=== PATIENT | female | born 1995 | race African-American/Black ===

== ENCOUNTER 2020-08-31 19:02 | Emergency (ER) | payer MEDICAID ==
[~2020-08-31] VITALS: Ht 170.2 cm; Wt 60.0 kg
[2020-08-31] MEDS ORDERED: KETOROLAC 30MG/ML VIAL IV STA (22:10)
[2020-08-31] MEDS ORDERED: ONDANSETRON HCL 4MG/2ML INJ IV STA (22:10)
[2020-08-31] MEDS ORDERED: SODIUM CHLORIDE 0.9% 1,000 ML IV ONE (22:15)
[2020-08-31 22:40] LABS: BASOPHILS % 0.4 % (0.0-2.0); EOSINOPHILS % 0.6 % (0.0-5.0); HEMATOCRIT. 42.6 % (36.0-48.0); HEMOGLOBIN. 14.3 g/dL (12.0-16.0); LYMPHOCYTES % 22.3 % (20.0-50.0); MEAN CORPUSCULAR VOLUME 89.6 fL (81.0-99.0); MEAN PLATELET VOLUME 11.1 fl (7.4-10.4); MONOCYTES % 4.7 % (2.0-8.0); PLATELET 139 x1000/uL (130-400); RED BLOOD CELL COUNT 4.76 mill/uL (4.2-5.4); RED CELL DISTRIBUTION WIDTH 13.8 % (11.6-14.6)
[2020-08-31 22:41] LABS: CLARITY URINE CLOUDY (CLEAR); COLOR URINE ORANGE (YELLOW); KETONES URINE 1+ (NEGATIVE); LEUKOCYTE ESTERASE URINE 1+ (NEGATIVE); NITRITE URINE NEGATIVE (NEGATIVE); OCCULT BLOOD URINE 3+ (NEGATIVE); PH URINE 8.5 (4.5-8.0); PROTEIN URINE 1+ (NEGATIVE)
[2020-08-31 22:45] LABS: CHLORIDE 107 mEq/L (98-107)
[2020-08-31 22:52] LABS: HCG SCREEN NEGATIVE
[2020-09-01] MEDS ORDERED: ONDA4TAB11 PO (00:51)
[2020-09-01 00:58] VITALS: BP 128/78
== END 2020-09-01 01:14 | disposition home or self-care (01) ==
LOC: ER 19:02
DX: N94.6 Dysmenorrhea, unspecified (principal); R11.2 Nausea with vomiting, unspecified; Z98.890 Other specified postprocedural states; Z88.0 Allergy status to penicillin
CPT/HCPCS: 36415; 80053; 81003; 81025; 83690; 84703; 85025; 96361; 96374; 96375; 99284; J1885; J2405; J7030